=== PATIENT | female | born 1990 | race Caucasian/White ===

== ENCOUNTER 2017-09-14 08:13 | Inpatient (IN) ==
[2017-09-14 08:51] LABS: Hematocrit [HCT] 38.2 % (37.0-47.0); Hemoglobin [HGB] 13.2 g/dL (12.0-16.0); MEAN CORPUSCULAR HEMOGLOBIN 30.1 PG (27-31); MEAN CORPUSCULAR HGB CONC 34.6 g/dL (33-37); MEAN PLATELET VOLUME 9.7 FL (7.4-12.2); RED BLOOD COUNT 4.39 10^6/uL (4.20-5.40)
[2017-09-14 09:13] LABS: BLOOD UREA NITROGEN 8 mg/dL (7-22); SERUM ALBUMIN 3.2 g/dL (3.5-4.8); Uric Acid 5.8 mg/dl (2.5-6.2)
[2017-09-14] MEDS ORDERED: ONDANSETRON 4 MG/2 ML VIAL IVP ONE (09:35)
[2017-09-14] MEDS ORDERED: Lactated Ringers-OB Dept 1,000 ML PRIMARY IV SCH (09:45)
[2017-09-14] MEDS ORDERED: MORPHINE SULFATE 2 MG/1 ML IVP ONE (10:23)
[2017-09-14] MEDS ORDERED: Promethazine Tab 25 MG TAB PO ONE (13:12)
[2017-09-14] MEDS: MORPHINE SULFATE 2 MG/1 ML IVP PRN (14:02)
[2017-09-14] MEDS ORDERED: oxyCODONE-ACETAMINOPHEN 5-325 TAB PO ONE (15:39)
[2017-09-14] MEDS ORDERED: SUMAtriptan Succinate 6 MG/0.5 ML SUBCUT ONE (15:42)
--- NOTE | 2017-09-14 16:59 | OB.PROGRES ---
Intake - - Reason for Visit/Chief Complaint: NST, Headache Admitted From: Home - Estimated Due Date: 09/28/17 Gestational Age in Weeks and Days: 39 Weeks and 0 Days Para: 1 Term Births: 1 Births: 0 Number of Abortions (Spont./Elective): 0 Living Children: 1 - Labs Blood Type and Rh: O- Group B Strep: Negative Hepatitis B Surface Antigen: Absent HIV: Negative Rubella Status: Immune VDRL/RPR: Absent Maternal - Vital Signs Last Taken Vital Signs: Vital Signs - Last Taken Temperature 98.9 F 09/14/17 08:26 Pulse Rate 75 09/14/17 08:26 Respiratory Rate 16 09/14/17 08:26 Blood Pressure 131/73 09/14/17 08:26 Pulse Ox 99 09/14/17 08:26 - Vaginal Discharge Vaginal Bleeding Amount: None Vaginal Discharge Amount: Small Vaginal Discharge Color: Clear Vaginal Discharge Odor: Odorless Vaginal Itching: No Monitoring - Uterine Activity Uterine Contraction Monitor Mode: External Contraction Frequency(minutes): x1 Contraction Duration (seconds): 70 Uterine Contraction Pattern: None Uterine Tone Measurement Phase: Soft Results - Labs CBC and BMP: 09/17/17 11:00 09/17/17 05:10 - Bedside Testing Bedside Urine Ketone: Negative Bedside Urine Leukocytes Esterase: Small Bedside Urine Nitrite: Negative Bedside Urine Occult Blood: Negative Bedside Urine Protein: Trace Bedside Specific [place]: 1.015 Assessment and Plan - Patient Problems (1) headache in third trimester Status: Acute Code(s): O26.893 - Other specified related conditions , third trimester; R51 - Headache Support Text: 27 yo at 38 0/7 weeks gestation, known proteinuria. Patient was seen in L& D last night for BUTLER. Improved with T3 so went home. After getting home the BUTLER and nausea got much worse. She had associated photophonophobia which is improved this morning. States it feels like migraines she has had in the past but much worse. She returned this morning. BPs have remained normal. She was initially given zofran for the nausea, which helped. Then morphine 2 mg IV and recommended rest. She was given sq imitrex with no improvement. This did not help the BUTLER at all. She was then given phenergan and more morphine, was able to sleep and had little improvement. Given gestational age, proteinuria and intractable headache, will proceed with repeat section for atypical preeclampsia with severe feature of intractable headache.
[2017-09-14] MEDS ORDERED: SODIUM CHLORIDE 0.9% IV ONE (17:44)
[2017-09-14] MEDS ORDERED: Lactated Ringers 1,000 ML PRIMARY IV ONE (17:44)
[2017-09-14] MEDS ORDERED: CITRIC ACID/SODIUM CITRATE 30 ML CUP PO ONE (17:44)
[2017-09-14] MEDS ORDERED: LIDOCAINE W/ SODIUM BICARB 0.5 ML SYR SUBD PRN ×2 (17:44→20:05)
[2017-09-14] MEDS ORDERED: Metoclopramide Inj 10 MG/2 ML VIAL IV ONE (17:44)
[2017-09-14] MEDS ORDERED: LIDOCAINE HCL 2 % 10 ML JELLY URO-JECT TOPICAL PRN (17:44)
[2017-09-14] MEDS ORDERED: FAMOTIDINE 20 MG/2 ML VIAL IVP ONE (17:44)
[2017-09-14] MEDS ORDERED: ERTAPENEM IV ONE (17:44)
[2017-09-14] MEDS ORDERED: Lactated Ringers 1,000 ML PRIMARY IV SCH (17:45)
[2017-09-14] MEDS ORDERED: Oxytocin 20 Units + LR 20 UNIT/1,000 ML BAG IV SCH ×2 (17:45→20:56)
[2017-09-14] MEDS ORDERED: Magnesium Sulfate (Premix) 20 GM/500 ML BAG IV SCH (17:45)
[2017-09-14] MEDS ORDERED: Magnesium Sulfate 2gm (Premix) 2 GM/50 ML BAG IV ONE (17:47)
--- NOTE | 2017-09-14 18:17 | OB.PROGRES ---
Interval History: 27 yo at 38 0/7 weeks gestation who presented last night with BUTLER. BUTLER improved with T3 initially, she went home slept for a bit, then woke up and felt much worse with nausea, vomiting. She returned this morning. She stated this morning that the BUTLER feels like migraines she has had in the past, occipital BUTLER, photo/phonophobia last night. That had resolved by today. We tried zofran which initially helped the nausea, then morphine 2mg with a slight improvement. Then phenergan 25mg po and 2mg IV morphine, she slept for a couple hours - again little improvement. We then tried imitrex, some improvement but still 3/10 BUTLER. complicated by proteinuria, 25 hour urine protein 377mg about 10 days ago. She has had increased edema in this time. Her BPs have remained normal throughout. Given continued BUTLER despite multiple treatments I called and consulted with M Dr. Retana. She recommended delivery for atypical preeclampsia with severe features, start mag. OBHx 04/27/15 - Delivered 8 lb 9oz female at 41 5/7 weeks gestation via primary LTCS for CPD. Was induced for postdates, AROM, failure to dilate and descend. Postop course complicated by e coli bacteremia. Was treated initially with lovenox for presumed septic thrombophlebitis although imaging never showed a thrombus. Thrombophilia panel was negative. 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 No h/o abnormal pap. Last 08/31/14. Does not think she got the gardasil vaccine series. No h/o STIs. PMH negative except e coli bacteremia PSH 1 c/s FH - CAD, HTN, breast cancer No known family h/o congenital disorders in either side of family SH - never smoker, no etoh or illicit drug use. 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 [employer] Objective - Cervical Exam [place]: irritability Heart Rate: baseline 130s, mod variability, +accels, -decels Heart Rate Interpretation Category: Category I - Labs Additional Lab Results: 09/14/17 09/14/17 08:35 08:35 WBC 10.02 Hgb 13.2 Hct 38.2 Plt Count 248 Sodium 138 Potassium 3.9 Chloride 111 Carbon Dioxide 19 L Anion Gap 8 BUN 8 Creatinine 0.5 Estimated GFR > 60 BUN/Creatinine Ratio 16.00 Glucose 81 Uric Acid 5.8 Calcium 8.4 L Total Bilirubin 1.1 D AST 21 ALT 24 Alkaline Phosphatase 112 Lactate Dehydrogenase 337 Albumin 3.2 L Globulin 3.1 09/02/17 07:02 Ur 24 Hour Volume 2900 Ur Total Protein 24 Hr 13 U Tot Protein 24h, Calc 377 H Assessment and Plan - Patient Problems (1) Preeclampsia Current Visit: Yes Status: Acute Code(s): O14.90 - Unspecified pre-eclampsia , unspecified trimester Support Text: 27 yo at 38 0/7 weeks gestation by 1st trimester u/s with atypical preeclampsia with severe features. Patient with proteinuria, edema, hyperreflexia, now with BUTLER that has responded minimally to triptan, opioids, phenergan, zofran. In consultation with MFM Dr. Retana in [place], she recommended proceeding with repeat section and starting magnesium for the severe feature. History notable for e coli bacteremia after first . Will obtain a urine culture now. Will give Invanz as preop antibiotic as recommended by ID, Dr. Barber. We did a MRSA swab which was negative so will not give vanco. Will also plan to start Lovenox for prophylactic anticoagulation 40mg sc bid starting 12 hours postop. OR crew has been notified. Patient consented. Dr. Palmer will be in attendance for care. Rh negative. GBS negative.
[2017-09-14] MEDS: Magnesium Sulfate 1gm (Premix) 1 GM/100 ML BAG IV SCH ×2 (18:23→18:34)
[2017-09-14 18:26] LABS: BILIRUBIN,URINE NEGATIVE (NEG); CLARITY,URINE CLEAR (CLEAR); COLOR,URINE YELLOW (Y); GLUCOSE, URINE (UA) NEGATIVE (NEG); OCCULT BLOOD,URINE NEGATIVE (NEG); PROTEIN,URINE NEGATIVE (NEG); UROBILINOGEN,URINE 0.2 EU/dL (0.2)
[2017-09-14 18:30] LABS: URINE SAMPLE TYPE VOIDED SPECIMEN
[2017-09-14] MEDS ORDERED: MORPHINE SULFATE/PF 10 MG/10 ML AMPULE ONE (18:30)
[2017-09-14] MEDS ORDERED: ePHEDrine Inj 50 MG/ML AMP ONE (18:55)
[2017-09-14] MEDS ORDERED: OXYTOCIN 10 UNIT/1 ML ONE ×2 (18:57→19:08)
[2017-09-14] MEDS ORDERED: ONDANSETRON 4 MG/2 ML VIAL ONE (19:00)
[2017-09-14] MEDS ORDERED: Carboprost Inj 250 MCG/ML AMP IM ONE (19:10)
[2017-09-14] MEDS ORDERED: OXYMETAZOLINE 0.05% 15 ML NASAL SPRAY ONE (19:31)
[2017-09-14] MEDS ORDERED: KETOROLAC 30 MG/1 ML VIAL ONE (19:41)
--- NOTE | 2017-09-14 20:02 | CRNA.PROGR ---
Anesthesia Time - - Start date: 09/14/17 End date: 09/14/17 - Procedure/Recovery Time Anesthesia : Time In: 18:48 Anesthesia : Time Out: 19:55 Anesthesia : Total Time: 67 - Total Anesthesia Time Total Anesthesia Time (minutes): 67 - Other Weight: 127.913 kg Height: 5 ft 5 in Body Mass Index (BMI): 46.9 Physical Status: P2 Anesthesia Type: Spinal Block Obstetrics: C/S anesthesia only
--- NOTE | 2017-09-14 20:03 | CRNA.PROGR ---
Anesthesia Recovery Phase I - Post Anesthesia Evaluation Patient's Condition on Arrival in Phase I: Stable Pain Level: 0
--- NOTE | 2017-09-14 20:04 | CRNA.PROCE ---
Central Neuraxis Block Placemt - - Safety Measures: Time Out Taken - - Type of Block: Subarachnoid Reason for Block: Surgical Moniters Used During Block: EKG, SPO2, NIBP Skin Prep Used: ChloroPrep Draped: No Skin Infiltration - Enter Amount Used in Comment Field: 1% Xylocaine (mL): Yes ( skin wheal) Spinal Needle Used: 25 Vitaly 80 mm Local Anesthetic - Enter Amount Used in Comment Field: 0.75 % Bupivacaine with Dextrose (ml): Yes (15mg) Additive Used - Enter Amount Used in Comment Field: Preservative Free Morphine ( mg): Yes (.15mg) Bioclusive Dressing Applied: No Anesthesia Time - Other Weight: 127.913 kg Height: 5 ft 5 in Body Mass Index (BMI): 46.9
[2017-09-14] MEDS ORDERED: Prochlorperazine Edisylate Inj 10mg/2ml vial IVP PRN (20:05)
[2017-09-14] MEDS ORDERED: HYDROmorphone 2 MG/1 ML IVP PRN (20:05)
--- NOTE | 2017-09-14 20:12 | OB.OP.NOTE ---
Operative Report Surgeon: Flora Outside Installer Apprentice: Cesar Gonzalez MD Anesthesia Type: Regional Anesthesia Provider: Kirill Rodriguez CRNA Surgery Date: 09/14/17 Preoperative Diagnosis: 38 weeks gestation, Atypical PreEclampsia with severe features, prior Postoperative Diagnosis: Same. Normal ovaries, fallopian tubes, and uterus Procedure: Repeat section Complications: none apparent Estimated Blood Loss (mL): 1,000 Fluids: 900 cc Indications: We do not offer vaginal after section trials at our facility and the patient did not desire this. She is requesting a repeat section. Patient with intractable headache, proteinuria, edema, in consultation with [facility] diagnosis of atypical preeclampsia and proceeded with delivery. Findings: 7 lb 11.5 oz male Description of Procedure: The patient was taken to the operating room where spinal anesthesia was found to be adequate. She was then prepared and draped in the normal sterile fashion in the dorsal supine position with a leftward tilt. A Pfannenstiel skin incision was then made with the scalpel and carried through to the underlying layer of fascia with Bovie. The fascia was incised in the midline and the incision extended laterally with the Bovie. The superior aspect of the fascial incision was then grasped with Cecilia clamps, elevated and the underlying rectus muscles dissected off bluntly. Attention was then turned to the inferior aspect of this incision which in a similar fashion was grasped with Cecilia clamps and the rectus muscles dissected off both bluntly and with the Bovie. The rectus muscle was then in the midline, and the peritoneum identified, tented up, and entered in blunt fashion. The peritoneal incision was then extended superiorly and inferiorly with good visualization of the bladder. The Robi retractor was then inserted and the vesicouterine peritoneum was identified. The lower uterine segment incised in the transverse fashion with the scalpel. The uterine incision was then extended laterally blunt fashion. The 's head was delivered atraumatically. The nose and mouth were suctioned with the bulb suction and the cord clamped and cut. The was handed off to the awaiting nurse. Cord gases and cord blood were sent for analysis. The placenta was then removed manually; the uterus exteriorized, and cleared of all clots and debris. The uterus was quite boggy and an extra 10mu of pitocin was given. The uterine incision was repaired with 0 Vicryl in a running , locked fashion. A second layer of the same suture was used to obtain excellent hemostasis. The peritoneal cavity was then copiously irrigated with warm saline. The uterus was returned to the abdomen. The paracolic gutters were copiously irrigated with warm saline and a second look at the uterus incision continued to reveal excellent hemostasis. The peritoneum was closed with 2-0 Vicryl. The fascia reapproximated with looped 0 PDS in a running fashion. The subcutaneous space was irrigated with copiously with warm saline and the closed first with 3-0 Vicryl and then more superficially with metal clif. The skin was dressed with a Silverlon dressing . Fundal massage was completed with no clots in vaginal vault. The patient tolerated the procedure well. Sponge, lap, and needle counts were correct x2. Invanz was given preop given h/o e coli bacteremia with last one hour prior to incision time. The patient was taken to the recovery room in stable condition. Patient Problems - Patient Problem List (1) Preeclampsia Current Visit: Yes Status: Acute Code(s): O14.90 - Unspecified pre-eclampsia , unspecified trimester Category: Medical
[2017-09-14] MEDS ORDERED: diphenhydrAMINE 25 MG CAPSULE PO PRN (20:56)
[2017-09-14] MEDS ORDERED: D5-LR 1,000 ML PRIMARY IV SCH (20:56)
[2017-09-14] MEDS ORDERED: diphenhydrAMINE 50 MG/1 ML VIAL IV PRN (20:56)
[2017-09-14] MEDS ORDERED: KETOROLAC 15 MG/1 ML VIAL IVP SCH ×2 (20:56→22:00)
[2017-09-14] MEDS ORDERED: FAMOTIDINE 20 MG/2 ML VIAL IVP PRN (20:56)
[2017-09-14] MEDS ORDERED: ONDANSETRON 4 MG/2 ML VIAL IVP PRN (20:56)
[2017-09-14] MEDS ORDERED: LANOLIN HPA 40 GM TUBE TOPICAL PRN (20:56)
[2017-09-14] MEDS ORDERED: Nalbuphine Inj 20 MG/ML Ampule IVP PRN (20:56)
[2017-09-14] MEDS ORDERED: CALCIUM CARBONATE 500 MG (TUMS) CHEWABLE TABLET PO PRN (20:56)
[2017-09-14] MEDS ORDERED: Naloxone Inj 0.01 MG, Sodium Chloride 0.9% vial 1 ML IVP PRN ×2 (20:56)
[2017-09-14] MEDS: ENOXAPARIN SODIUM 40 MG/0.4 ML SYRINGE SUBCUT SCH (22:18)
[2017-09-14] MEDS: oxyCODONE-ACETAMINOPHEN 5-325 TAB PO PRN (23:09)
[2017-09-14] MEDS ORDERED: Carboprost Inj 250 MCG/ML AMP IM STA (23:26)
[2017-09-15] MEDS ORDERED: CALCIUM GLUCONATE 100 MG/1 ML - 10 ML IVP PRN ×2 (00:51→02:36)
[2017-09-15] MEDS ORDERED: Magnesium Sulfate (Premix) 20 GM/500 ML BAG IV SCH ×2 (00:54→01:00)
[2017-09-15] MEDS: KETOROLAC 15 MG/1 ML VIAL IVP SCH ×4 (01:33→20:20)
[2017-09-15 04:56] LABS: Hematocrit [HCT] 29.5 % (37.0-47.0); MEAN CORPUSCULAR HEMOGLOBIN 29.9 PG (27-31); MEAN CORPUSCULAR HGB CONC 33.9 g/dL (33-37); MEAN CORPUSCULAR VOLUME 88.3 FL (81-99); MEAN PLATELET VOLUME 9.9 FL (7.4-12.2); RED BLOOD COUNT 3.34 10^6/uL (4.20-5.40)
[2017-09-15 05:24] LABS: BLOOD UREA NITROGEN 10 mg/dL (7-22); BUN/CREATININE RATIO 16.66 (6-20); SERUM ALBUMIN 2.3 g/dL (3.5-4.8); Uric Acid 5.4 mg/dl (2.5-6.2)
[2017-09-15] MEDS: oxyCODONE-ACETAMINOPHEN 5-325 TAB PO PRN ×3 (05:35→20:55)
[2017-09-15] MEDS ORDERED: Lactated Ringers 1,000 ML PRIMARY IV ONE ×2 (07:04→18:28)
--- NOTE | 2017-09-15 07:31 | CRNA.PROGR ---
Anesthesia Note - Progress Notes Anesthesia Progress Note: Post OP Anesthesia Note Pt is sitting up in bed, awake alert and oriented. She states that she has had no further N/V since last noc. She he has ambulated, and has been able to eat. Denies any residual problems from the SAB. Current VS are stable. Vital Signs - Last Taken Temperature 97.7 F 09/15/17 04:41 Pulse Rate 94 09/15/17 04:41 Respiratory Rate 16 09/15/17 04:41 Blood Pressure 125/73 09/15/17 04:41 Pulse Ox 99 09/15/17 04:55
[2017-09-15] MEDS: Prenatal Multivitamin Tab 1 TAB TAB PO SCH (08:29)
[2017-09-15] MEDS: ENOXAPARIN SODIUM 40 MG/0.4 ML SYRINGE SUBCUT SCH ×2 (08:29→20:56)
[2017-09-15] MEDS: Senna/Docusate Tab 1 TAB TAB PO SCH ×2 (08:29→20:20)
--- NOTE | 2017-09-15 08:30 | OB.PROGRES ---
Subjective Post Op Day: 1 Pain Management: PO Trammell Catheter: Yes Flatus: No Diet: Clear Liquids Feeding Method: Exculsively Ambulating: No Concerns / Additional Information: 27 yo G2 now P2 s/p repeat LTCS in setting of atypical preeclampsia with severe feature of intractable BUTLER. BUTLER resolved postop. She did have significant bleeding last night that responded well to a dose of hemabate. This morning she states her pain is controlled. She is pruritic from the duramorph, we are out of nubain and she got benadryl but it didn't help significantly. She is breast feeding, he did latch well at 0700, but not well last night. She felt a bit lightheaded this morning with sitting up at the side of the bed. Swelling is improving. Taking liquids well orally. Objective - General General Appearance: POSITIVE: No Acute Distress, Cooperative - Cardiovacular Cardiovascular Exam: POSITIVE: RRR Edema: +2 Pedal Edema Extremities: Negative Fito's - Bilaterally - Respiratory Respiratory Exam: POSITIVE: Clear to Auscultation - Bilaterally, Breathing Non Labored. NEGATIVE: Rales, Rhonci, Wheezes - Reflexes Clonus (indicate extremity in comment field): Absent Deep Tendon Reflex (indicate extremity in comment field): Normal +2 - Abdomen Bowel Sounds: Hypoactive Abdominal Wound Assessment: Silverlone Dressing - Fundus/Lochia/Perineum Uterus Consistency: Firm Uterus Position: POSITIVE: At Umbilicus Lochia Amount: Moderate 25-50 ml Lochia Color: Rubra/Red Assesstment / Plan (1) Preeclampsia Current Visit: Yes Status: Acute (2) Status post repeat low transverse section Current Visit: Yes Status: Acute Support Text: 27 yo G2 now P2, POD 1 s/p repeat LTCS at 38 0/7 weeks gestation for atypical preeclampsia with severe features. -Pain well controlled currently, although pruritic from the duramorph. Will give stadol this morning. Transition to po pain meds. -Atypical PreEclampsia - BUTLER resolved postop. Has been on mag overnight but only 300 cc UOP since trammell placement. BPs have remained stable. LFTs, BUN, Cr, Plts all normal. Will go ahead and d/c mag and fluids 12 hours postop. Continue close observation. -H/o e coli bacteremia post op after primary c/s. Plan to give Invanz 1 g 24 hours post op. Will aslo start ppx lovenox this morning bid x14 days. -Plan to d/c teresa trammell this evening -Mom Rh-, infant Rh- -Anticipate discharge in 48-72 hours
[2017-09-15] MEDS: BUTORPHANOL TARTRATE 2 MG/1 ML VIAL IVP PRN ×3 (09:12→20:18)
[2017-09-15 17:35] LABS: BASOPHILS # (AUTO) 0.02 10*3/UL; BASOPHILS % (AUTO) 0.2 % (0-1); EOSINOPHILS # (AUTO) 0.04 10*3/UL; EOSINOPHILS % (AUTO) 0.4 % (0-8); Hematocrit [HCT] 23.7 % (37.0-47.0); Hemoglobin [HGB] 7.9 g/dL (12.0-16.0); LYMPHOCYTES # (AUTO) 1.27 10*3/uL; MEAN CORPUSCULAR HGB CONC 33.3 g/dL (33-37); MEAN CORPUSCULAR VOLUME 90.1 FL (81-99); MEAN PLATELET VOLUME 9.7 FL (7.4-12.2); MONOCYTES # (AUTO) 0.81 10*3/UL (0.3-0.8); MONOCYTES % (AUTO) 8.2 % (5-15); NEUTROPHILS # (AUTO) 7.64 10*3/UL; NEUTROPHILS % (AUTO) 77.8 % (50-80); RED BLOOD COUNT 2.63 10^6/uL (4.20-5.40)
[2017-09-15 17:39] LABS: PLATELET MORPHOLOGY COMMENT NORMAL MORPHOLOGY (NORM); RBC MORPHOLOGY COMMENT NORMAL MORPHOLOGY (NORM); WBC MORPHOLOGY COMMENT NORMAL MORPHOLOGY (NORM)
[2017-09-15] MEDS ORDERED: Ertapenem Inj 1 GM in Sodium Chloride 0.9% 100 ML IV SCH (21:00)
[2017-09-16] MEDS: KETOROLAC 15 MG/1 ML VIAL IVP SCH (01:44)
[2017-09-16] MEDS: oxyCODONE-ACETAMINOPHEN 5-325 TAB PO PRN ×4 (01:45→20:14)
[2017-09-16 05:58] LABS: BLOOD UREA NITROGEN 11 mg/dL (7-22); BUN/CREATININE RATIO 15.71 (6-20); SERUM ALBUMIN 2.6 g/dL (3.5-4.8); Uric Acid 6.4 mg/dl (2.5-6.2)
[2017-09-16 06:36] LABS: MEAN CORPUSCULAR HEMOGLOBIN 30.2 PG (27-31); MEAN CORPUSCULAR HGB CONC 33.7 g/dL (33-37); MEAN CORPUSCULAR VOLUME 89.7 FL (81-99); MEAN PLATELET VOLUME 10.3 FL (7.4-12.2); RED BLOOD COUNT 2.32 10^6/uL (4.20-5.40)
[2017-09-16] MEDS ORDERED: Sodium Chloride 0.9% 500 ML PRIMARY IV ONE (06:50)
[2017-09-16] MEDS ORDERED: ACETAMINOPHEN 325 MG TABLET PO ONE (06:50)
[2017-09-16 06:55] LABS: Hematocrit [HCT] 20.8 % (37.0-47.0)
--- NOTE | 2017-09-16 08:34 | OB.PROGRES ---
Subjective Post Op Day: 2 Pain Management: PO Sibley Catheter: Yes Flatus: Yes Diet: Regular Feeding Method: Exculsively Ambulating: Yes Concerns / Additional Information: Patient passed a large clot late yesterday afternoon, was tachycardic, pale, lightheaded after. With rest felt better. Hg dropped to 7.9 shortly after. Overnight she did better, no lightheadedness, was able to ambulate asymptomatically. Sibley still in, she did diurese better last night. Objective - General General Appearance: POSITIVE: No Acute Distress, Cooperative - Cardiovacular Cardiovascular Exam: POSITIVE: Tachycardia Edema: +2 Pedal Edema Extremities: Negative Fito's - Bilaterally - Respiratory Respiratory Exam: POSITIVE: Clear to Auscultation - Bilaterally, Breathing Non Labored. NEGATIVE: Rales, Rhonci, Crackles - Abdomen Bowel Sounds: Present Abdominal Wound Assessment: [place] Dressing - Fundus/Lochia/Perineum Uterus Consistency: Firm Uterus Position: POSITIVE: At Umbilicus Lochia Amount: Scant < 10 ml Lochia Color: Rubra/Red Assesstment / Plan (1) Preeclampsia Current Visit: No Status: Acute (2) Status post repeat low transverse section Current Visit: No Status: Acute Support Text: 27 yo G2 now P2, POD 2 s/p repeat LTCS at 38 0/7 weeks gestation for atypical preeclampsia with severe features. -Pain well controlled. -Atypical PreEclampsia - BUTLER resolved postop. Was on mag for 12 hours postop. BPs have remained stable. LFTs, BUN, Cr, Plts all normal. -H/o e coli bacteremia post op after primary c/s. She received Invanz preop and 24 hours post op. -Postop anemia - 1000cc EBL then passed 2 large clots. Bleeding is minimal now but Hg has dropped to 7.0. Will proceed with 2U PRBC transfusion. -Plan to d/c valeri, shower this morning -Mom Rh-, infant Rh-
[2017-09-16] MEDS: ENOXAPARIN SODIUM 40 MG/0.4 ML SYRINGE SUBCUT SCH ×2 (10:48→20:13)
[2017-09-16] MEDS: MORPHINE SULFATE 2 MG/1 ML IVP PRN (15:23)
[2017-09-16] MEDS: Prenatal Multivitamin Tab 1 TAB TAB PO SCH (20:02)
[2017-09-16] MEDS: Senna/Docusate Tab 1 TAB TAB PO SCH ×2 (20:03→20:14)
[2017-09-16] MEDS: IBUPROFEN 800 MG TABLET PO PRN (20:14)
[2017-09-17] MEDS: oxyCODONE-ACETAMINOPHEN 5-325 TAB PO PRN ×4 (00:04→12:47)
[2017-09-17 01:26] VITALS: TEMP 97.6
[2017-09-17] MEDS: IBUPROFEN 800 MG TABLET PO PRN ×2 (04:21→12:46)
[2017-09-17 05:32] LABS: BASOPHILS # (AUTO) 0.03 10*3/UL; BASOPHILS % (AUTO) 0.3 % (0-1); EOSINOPHILS # (AUTO) 0.23 10*3/UL; EOSINOPHILS % (AUTO) 2.4 % (0-8); Hemoglobin [HGB] 7.4 g/dL (12.0-16.0); LYMPHOCYTES # (AUTO) 2.62 10*3/uL; MEAN CORPUSCULAR HEMOGLOBIN 30.8 PG (27-31); MEAN CORPUSCULAR HGB CONC 33.6 g/dL (33-37); MEAN CORPUSCULAR VOLUME 91.7 FL (81-99); MEAN PLATELET VOLUME 9.6 FL (7.4-12.2); MONOCYTES # (AUTO) 1.05 10*3/UL (0.3-0.8); MONOCYTES % (AUTO) 11.1 % (5-15); NEUTROPHILS # (AUTO) 5.34 10*3/UL; NEUTROPHILS % (AUTO) 56.3 % (50-80)
[2017-09-17 05:49] LABS: PLATELET MORPHOLOGY COMMENT NORMAL MORPHOLOGY (NORM); RBC MORPHOLOGY COMMENT NORMAL MORPHOLOGY (NORM); WBC MORPHOLOGY COMMENT NORMAL MORPHOLOGY (NORM)
[2017-09-17 05:50] LABS: BLOOD UREA NITROGEN 7 mg/dL (7-22); BUN/CREATININE RATIO 11.66 (6-20); SERUM ALBUMIN 2.3 g/dL (3.5-4.8)
[2017-09-17 08:23] VITALS: BP 115/83; RESP 16; O2SAT 97
[2017-09-17] MEDS: ENOXAPARIN SODIUM 40 MG/0.4 ML SYRINGE SUBCUT SCH (08:54)
[2017-09-17] MEDS: Senna/Docusate Tab 1 TAB TAB PO SCH (08:54)
[2017-09-17] MEDS: Prenatal Multivitamin Tab 1 TAB TAB PO SCH (08:54)
[2017-09-17] MEDS ORDERED: FERROUS GLUCONATE 324 MG TABLET PO SCH (09:00)
--- NOTE | 2017-09-17 13:07 | DCSUMMARY ---
Hospitalization Summary Admit Date: 09/14/17 Discharge Date: 09/17/17 Primary Diagnosis:: s/p repeat LTCS, atypical preeclampsia, postop anemia Secondary Diagnosis:: h/o e coli bacteremia postop after primary Primary Surgery and Date: repeat LTCS 09/14/17 Delivery Type: Hospital Course: 27 yo G2 now P2 who presented at 38 weeks gestation with intractable BUTLER, did not respond to tylenol, T3, imitrex, zofran, phenergan or morphine. Given proteinuria and intractable BUTLER, discussed case with [facility] in [place] and they recommended delivery for atypical preeclampsia. and thus underwent repeat LTCS. She did feel much better postoperatively from a BUTLER standpoint. She has a h/o e coli bacterimia post op after first , with possible septic thrombophlebitis as well (this was never proven). She was treated with invanz preop and then again 24 hours postop. She was started on Lovenox 12 hours postop for VTE ppx. She is breast feeding, that is going well. / Postop Complications: Postop anemia - 1000 cc EBL at , Postop hg dropped to 7.0mg/dL, s/p transfusion 2U PRBC, doing better No signs of infection [place] Complications: none apparent Exam - Vitals Vital Signs: Vital Signs Temperature 97.6 F Temperature Source Temporal Artery Scan Pulse Rate [Bilateral Dorsalis 104 Pedis] Pulse Rate [Apical] 110 Pulse Rate [Pulse Oximeter] 94 Pulse Rate [Pulse Oximeter] 75 Pulse Rate 123 Respiratory Rate 16 Blood Pressure [Left Arm] 125/73 Blood Pressure [Right Arm] 115/83 Blood Pressure 121/77 Pulse Ox 97 Oxygen Flow Rate 2 Oxygen Delivery Method Room Air Height 5 ft 5 in Weight 282 lb - General General Appearance: No Acute Distress, Cooperative - Head Head Exam: Normal Inspection - Eye Eye Exam: POSITIVE: Normal Appearance, EOMI - Respiratory Respiratory Exam: POSITIVE: Clear to Auscultation - Bilaterally, Breathing Non Labored - Cardiovascular Cardiovascular Exam: POSITIVE: RRR - GI/Abdominal GI/Abdominal Exam: POSITIVE: Normal Bowel Sounds, Soft. NEGATIVE: Distended, Guarding Additional GI/Abdominal Exam Details: Uterus firm at umbilicus, abdomen appropriately tender, much less tender than yesterday - Extremities Extremities Exam: POSITIVE: Negative Fito's sign, +1 Edema. NEGATIVE: Calf Tenderness - Neurological Neurological Exam: POSITIVE: Alert, Oriented x 3, Reflexes Normal - Psychiatric Psychiatric Exam: POSITIVE: Normal Affect, Normal Mood - Integumentary Integumentary Exam: POSITIVE: Normal Color Data Peritnent Studies: 09/15/17 09/15/17 09/16/17 04:38 17:20 05:05 WBC 14.39 H 9.83 10.33 Hgb 10.0 L 7.9 L 7.0 L Hct 29.5 L 23.7 L 20.8 L* Plt Count 247 246 229 09/17/17 09/17/17 05:10 11:00 WBC 9.49 Hgb 7.4 L 8.0 L Hct 22.0 L Plt Count 179 Patient Problems - Patient Problem List (1) Preeclampsia Status: Acute Code(s): O14.90 - Unspecified pre-eclampsia, unspecified trimester Category: Medical (2) Status post repeat low transverse section Status: Acute Code(s): Z98.891 - History of uterine scar from previous surgery Support Text: 27 yo G2 now P2, POD 3 s/p repeat LTCS at 38 0/7 weeks gestation for atypical preeclampsia with severe features. -Pain well controlled. -Atypical PreEclampsia - BUTLER resolved postop. Was on mag for 12 hours postop. BPs have remained stable. LFTs, BUN, Cr, Plts all normal. -H/o e coli bacteremia post op after primary c/s. She received Invanz preop and 24 hours post op. -Postop anemia - 1000cc EBL then passed 2 large clots. s/p 2U PRBC transfusion. Doing better today -Undecided about pp contraception -D/c to home today, f/u with me at 1 week postop, to get BP checked in 2 days when she brings the baby in for weight and bili Category: Medical
--- NOTE | 2017-09-20 11:37 | PT AM DAY ---
AM - Physical Therapy O: The patient was issued a Mom-EZ maternity support belt and was instructed in its proper use and care. P: No further therapy is indicated at this time. MTDD
== END 2017-09-17 13:00 | disposition home or self-care (01) | DRG 766 ==
LOC: OBOP 08:13 → MED/SURG 17:45 → OBIP 17:45 → OBOP 17:50
PROVIDERS: ADMIT Student in an Organized Health Care Education/Training Program; ATTEND Student in an Organized Health Care Education/Training Program